=== PATIENT | male | born 1985 | race Caucasian/White ===

== ENCOUNTER 2017-03-05 17:19 | Observation (INO) | payer OTHER ==
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
[2017-03-05] MEDS ORDERED: ONDANSETRON 4 MG/2 ML VIAL IVP ONE (17:53)
[2017-03-05] MEDS ORDERED: HYDROmorphONE/DILAUDID 1 MG/ML SYR IVP ONE (17:53)
[2017-03-05] MEDS ORDERED: IOPAMIDOL (ISOVUE-300) 100 ML BTL ONE (18:08)
[2017-03-05] MEDS ORDERED: HYDROCOD/APAP 5/325 PREPACK#6 BTL TAKEHOME ONE (20:15)
[2017-03-05] MEDS ORDERED: fentaNYL 100 MCG/2 ML INJ IVP ONE (20:24)
[2017-03-05] MEDS ORDERED: ONDANSETRON DISINTEGRATING 4 MG TAB ONE (21:54)
[2017-03-05] MEDS ORDERED: ONDANSETRON DISINTEGRATING 4 MG TAB PO ONE (22:07)
[2017-03-05 22:19] LABS: % IMMATURE GRANULYOCYTES 0.5 % (0.0-1.1); ABSOLUTE IMMATURE GRANULOCYTES 0.07 10^3/uL (0.00-0.10); ADD DIFF? NO; ADD MORPH? NO; ADD SCAN? NO; ATYPICAL LYMPHOCYTE FLAG 0 (0-99); FRAGMENT RBC FLAG 0 (0-99); HEMATOCRIT 42.2 % (40.0-51.0); HEMOGLOBIN 14.2 g/dL (13.7-17.5); LEFT SHIFT FLG 0 (0-99); LIPEMIA HEMOLYSIS FLAG 80 (0-99); MEAN CELL HEMOGLOBIN 30.9 pg (27.9-34.1); MEAN CELL HEMOGLOBIN CONCENTR. 33.6 g/dL (32.4-36.7); MEAN CELL VOLUME 91.7 fL (81.5-99.8); MEAN PLATELET VOLUME 11.9 fL (8.7-11.7); PLATELET CLUMPS FLAG 0 (0-99); PLATELET COUNT 196 10^3/uL (150-400); RED CELL DISTRIBUTION WIDTH 12.3 % (11.5-15.2)
[2017-03-05] MEDS ORDERED: KETOROLAC 30 MG/1 ML SDV IVP ONE (22:24)
[2017-03-05 22:28] LABS: ANION GAP 14 mEq/L (8-16); CALCIUM 9.2 mg/dL (8.5-10.4); CARBON DIOXIDE 21 mEq/l (22-31); CHLORIDE 104 mEq/L (97-110); CREATININE 0.9 mg/dL (0.7-1.3); GLOMERULAR FILTRATION RATE > 60; GLUCOSE 102 mg/dL (70-100); POTASSIUM 4.2 mEq/L (3.5-5.2); SODIUM 139 mEq/L (134-144)
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
[2017-03-05] MEDS ORDERED: ONDANSETRON DISINTEGRATING 4 MG TAB PO PRN (22:44)
[2017-03-05] MEDS ORDERED: HYDROCODONE/APAP 5/325 TAB PO PRN (22:44)
[2017-03-05] MEDS ORDERED: HYDROmorphONE/DILAUDID 1 MG/ML SYR IVP PRN (22:44)
[2017-03-05] MEDS ORDERED: D5W 1/2 NS 1,000 ML IV SCH (22:45)
[2017-03-05] MEDS: KETOROLAC 15 MG/1 ML SDV IVP SCH (23:43)
[2017-03-06] MEDS: KETOROLAC 15 MG/1 ML SDV IVP SCH (06:03)
[2017-03-06] MEDS: IBUPROFEN 600 MG TAB PO SCH ×2 (06:03→14:43)
[2017-03-06 08:33] VITALS: RESP 16
[2017-03-06] MEDS ORDERED: CYCLOBENZAPRINE 10 MG TAB PO SCH (09:00)
[2017-03-06] MEDS ORDERED: SENNOSIDES/DOCUSATE SODIUM TAB PO SCH (11:00)
--- NOTE | 2017-03-06 11:07 | TRAUMAPN ---
Assessment/Plan: clinically stable without additional injuries identified We discussed his injuries and I showed him the x-rays we discussed expected recovery will likely discharge later today after rechecking cbc Subjective: back pain/improved Objective: Vital Signs Temp Pulse Resp BP Pulse Ox 37.2 C 66 16 104/66 100 03/06/17 08:00 03/06/17 08:00 03/06/17 08:00 03/06/17 08:00 03/06/17 08:00 03/05/17 03/06/17 03/07/17 05:59 05:59 05:59 Intake Total 1420 Output Total 1400 Balance 1420 -1400 - C-Spine Clearance Cervical Spine Cleared: Yes Provider who Cleared Cervical Spine: Ruddy Physical Exam - Physical Exam General Appearance: alert, mild distress EENT: normal ENT inspection Neck: non-tender, full range of motion, supple Respiratory: lungs clear, normal breath sounds Cardiac/Chest: regular rate, rhythm Abdomen: normal bowel sounds, non-tender, soft Rectal: deferred Back: Other (tender right paraspinous) Skin: normal color, warm/dry Extremities: non-tender Neuro/Psych: no motor/sensory deficits, alert, normal mood/affect, oriented x 3 Time Spent w/Patient (minutes): 20
[2017-03-06 12:07] LABS: % IMMATURE GRANULYOCYTES 0.1 % (0.0-1.1); ABSOLUTE IMMATURE GRANULOCYTES 0.01 10^3/uL (0.00-0.10); ADD DIFF? NO; ADD MORPH? NO; ADD SCAN? NO; ATYPICAL LYMPHOCYTE FLAG 0 (0-99); FRAGMENT RBC FLAG 0 (0-99); HEMATOCRIT 41.4 % (40.0-51.0); HEMOGLOBIN 13.9 g/dL (13.7-17.5); LEFT SHIFT FLG 0 (0-99); LIPEMIA HEMOLYSIS FLAG 80 (0-99); MEAN CELL HEMOGLOBIN 30.8 pg (27.9-34.1); MEAN CELL HEMOGLOBIN CONCENTR. 33.6 g/dL (32.4-36.7); MEAN CELL VOLUME 91.6 fL (81.5-99.8); MEAN PLATELET VOLUME 11.2 fL (8.7-11.7); PLATELET CLUMPS FLAG 0 (0-99); PLATELET COUNT 182 10^3/uL (150-400); RED BLOOD CELL COUNT 4.52 10^6/uL (4.40-6.38); RED CELL DISTRIBUTION WIDTH 12.7 % (11.5-15.2)
[2017-03-06 12:33] VITALS: BP 110/66; PULSE 54; TEMP 98.4; O2SAT 96
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
== END 2017-03-06 15:42 | disposition home or self-care (01) ==
LOC: INTOOBSV 22:01 → F3N 22:54
PROVIDERS: ADMIT Surgery; ATTEND Surgery
DX: S32.018A Other fracture of first lumbar vertebra, initial encounter for closed fracture (principal); S32.028A Other fracture of second lumbar vertebra, initial encounter for closed fracture; S32.038A Other fracture of third lumbar vertebra, initial encounter for closed fracture; W22.09XA Striking against other stationary object, initial encounter; Y93.16 Activity, rowing, canoeing, kayaking, rafting and tubing; Y92.89 Other specified places as the place of occurrence of the external cause
CPT/HCPCS: 71260; 72129; 72132; 74177; 97161; 97165; G0378; 82947-QW; 96374; J1170; J1885; J2405; J3010; Q9967